=== PATIENT | male | born 1965 | race Hispanic/Latino ===

== ENCOUNTER 2025-02-24 22:01 | Inpatient (IN) | payer OTHER ==
[~2025-02-24] VITALS: Ht 170.2 cm; Wt 98.0 kg
[2025-02-24] MEDS ORDERED: SODIUM CHLORIDE 0.9% 1000ML 1,000 ML ONE ×2 (23:58→23:59)
[2025-02-25] VITALS (27 sets, daily range): BP systolic 78–106; BP diastolic 50–68; PULSE 55–100; RESP 14–23; TEMP 97.4–98.7; O2SAT 89–100
[2025-02-25] MEDS ORDERED: IOPAMIDOL 370 MG/ML 100 ML INFUS..BTL INJ ONE (00:01)
[2025-02-25] MEDS: SODIUM CHLORIDE 0.9% 1000ML 1,000 ML IV SCH ×5 (02:23→16:59)
[2025-02-25] MEDS ORDERED: ONDANSETRON HCL INJ 2MG/ML 2ML 2 MG/ML VIAL IV PRN (03:45)
[2025-02-25] MEDS: MUPIROCIN 2% OINT 22 GM TUBE TOP SCH (03:45)
[2025-02-25] MEDS ORDERED: SODIUM CHLORIDE 0.9% 250ML 250 ML ONE (04:24)
[2025-02-25] MEDS ORDERED: LISINOPRIL-HCT1 EACH (04:49)
[2025-02-25] MEDS ORDERED: ULTRAM 50MG50 MG (04:49)
[2025-02-25] MEDS ORDERED: MELOXICAM7.5 MG (04:49)
[2025-02-25] MEDS ORDERED: CYCLOBENZAPRINE5 MG (04:49)
[2025-02-25] MEDS ORDERED: ATORVASTATIN CA40 MG (04:49)
[2025-02-25] MEDS: SODIUM CHLORIDE 0.9% 250ML 250 ML IV ONE (05:06)
[2025-02-25 07:57] LABS: BASOPHILS # (AUTO) 0.1 (0.0-0.1); BASOPHILS % 0.2 % (0.0-1.0); HEMATOCRIT 34.8 % (38.2-49.6); HEMOGLOBIN 12.1 g/dL (14.0-18.0); LYMPHOCYTES # (AUTO) 1.4 (1.0-3.2); LYMPHOCYTES % 5.8 % (18.0-39.1); MEAN CORPUSCULAR HEMOGLOBIN 31.3 pg (28-32); MEAN CORPUSCULAR HGB CONC 34.8 g/dL (31-35); MEAN CORPUSCULAR VOLUME 90.2 fL (81-99); MONOCYTES # (AUTO) 1.1 (0.2-0.8); MONOCYTES % 4.5 % (4.4-11.3); NEUTROPHILS # (AUTO) 21.8 (2.1-6.9); NEUTROPHILS % 88.6 % (38.7-80.0); PLATELET COUNT 355 x10e3/uL (140-360); RED BLOOD COUNT 3.86 x10e6/uL (4.3-5.7); RED CELL DISTRIBUTION WIDTH 13.1 % (11.7-14.4); WHITE BLOOD COUNT 24.59 x10e3/uL (4.8-10.8)
[2025-02-25 08:13] LABS: ALBUMIN/GLOBULIN RATIO 0.9 (0.8-2.0); ANION GAP 13.5 mmol/L (8-16); BILIRUBIN,TOTAL 0.7 mg/dL (0.2-1.2); CREATININE, SERUM 1.38 mg/dL (0.72-1.25); POTASSIUM 3.5 mmol/L (3.5-5.1); TOTAL PROTEIN 6.2 g/dL (6.5-8.1)
[2025-02-25 08:48] LABS: TROPONIN I 0.014 ng/mL (0-0.300)
[2025-02-25] MEDS ORDERED: SUCCINYLCHOLINE CHLORIDE 20 MG/ML 10ML VIAL ONE (08:48)
[2025-02-25] MEDS ORDERED: ROCURONIUM BROMIDE 0 ML IV ONE (08:48)
[2025-02-25] MEDS ORDERED: FENTANYL CITRATE/PF 100MCG/2 ML INJ ONE (08:48)
[2025-02-25] MEDS ORDERED: PROPOFOL IV EMULSION 10 MG/ML 20 ML VIAL ONE (08:48)
[2025-02-25] MEDS ORDERED: LIDOCAINE HCL 2% LOCAL INJ 5 ML SDV VIAL INJ ONE (08:48)
[2025-02-25] MEDS ORDERED: HYDRALAZINE HCL 20 MG/ML VIAL IV PRN (09:15)
[2025-02-25] MEDS ORDERED: ACETAMINOPHEN 325 MG TAB PO PRN (09:15)
[2025-02-25] MEDS ORDERED: Morphine 2mg Syringe 2 MG/ML SYR IV PRN (09:15)
[2025-02-25] MEDS ORDERED: POLYETHYLENE GLYCOL 3350 17 GM PACK PO PRN (09:15)
[2025-02-25] MEDS ORDERED: HYDROMORPHONE 2MG/ML ONE (09:27)
[2025-02-25] MEDS ORDERED: KETOROLAC TROMETHAMINE 30 MG/ML VIAL ONE (09:28)
[2025-02-25] MEDS ORDERED: METOCLOPRAMIDE HCL 10 MG/2ML VIAL ONE (09:28)
[2025-02-25] MEDS ORDERED: DEXAMETHASONE SOD PHOS INJ 4 MG/ML SDV ONE (09:28)
[2025-02-25] MEDS ORDERED: PHENYLEPHRINE HCL 1% 10 MG/ML VIAL ONE (09:28)
[2025-02-25] MEDS ORDERED: ONDANSETRON HCL INJ 2MG/ML 2ML 2 MG/ML VIAL ONE (09:28)
[2025-02-25] MEDS ORDERED: ROCURONIUM BROMIDE 1 ML IV ONE (09:36)
[2025-02-25] MEDS ORDERED: SUGAMMADEX SODIUM 200 MG/2 ML VIAL IV ONE ×2 (10:06→10:21)
[2025-02-25] MEDS ORDERED: HYDROMORPHONE 1MG/1ML INJ IV PRN (10:30)
[2025-02-25] MEDS ORDERED: KETOROLAC TROMETHAMINE 30 MG/ML VIAL IV PRN (10:30)
[2025-02-25 11:03] LABS: LYMPHOCYTES % (MANUAL) 16 % (19-48); MONOCYTES % (MANUAL) 6 % (3.4-9.0); NEUTROPHILS % (MANUAL) 78 % (40-74); PLATELET ESTIMATE ADEQUATE; PLATELET MORPHOLOGY COMMENT NORMAL
[2025-02-25] MEDS ORDERED: DOCUSATE SODIUM 100 MG CAP PO SCH (17:00)
[2025-02-25] MEDS: HYDROCODONE/APAP 7.5MG-325MG 1 EA TAB PO PRN (20:52)
[2025-02-26] VITALS (16 sets, daily range): BP systolic 90–104; BP diastolic 55–66; PULSE 56–81; RESP 15–19; TEMP 97.5–98.1; O2SAT 94–100
[2025-02-26 06:33] LABS: BASOPHILS % 0.2 % (0.0-1.0); EOSINOPHILS # (AUTO) 0.1 (0.0-0.4); EOSINOPHILS % 0.5 % (0.0-6.0); HEMATOCRIT 30.4 % (38.2-49.6); LYMPHOCYTES # (AUTO) 1.9 (1.0-3.2); LYMPHOCYTES % 12.5 % (18.0-39.1); MEAN CORPUSCULAR HEMOGLOBIN 30.3 pg (28-32); MEAN CORPUSCULAR HGB CONC 32.9 g/dL (31-35); MEAN CORPUSCULAR VOLUME 92.1 fL (81-99); MONOCYTES % 6.7 % (4.4-11.3); NEUTROPHILS # (AUTO) 12.1 (2.1-6.9); NEUTROPHILS % 79.3 % (38.7-80.0); PLATELET COUNT 318 x10e3/uL (140-360); RED CELL DISTRIBUTION WIDTH 13.5 % (11.7-14.4)
[2025-02-26 07:04] LABS: ALBUMIN 2.7 g/dL (3.5-5.0); ANION GAP 11.7 mmol/L (8-16); BILIRUBIN,TOTAL 0.3 mg/dL (0.2-1.2); CALCIUM 7.7 mg/dL (8.4-10.2); CHOL/HDL RATIO 2.9 (3.9-4.7); MAGNESIUM 1.6 MG/DL (1.3-2.1); PHOSPHORUS 2.5 MG/DL (2.3-4.7); POTASSIUM 3.7 mmol/L (3.5-5.1); TOTAL PROTEIN 5.5 g/dL (6.5-8.1)
[2025-02-26 07:19] LABS: CREATININE, SERUM 1.04 mg/dL (0.72-1.25)
[2025-02-26 07:59] LABS: FREE T4 (FREE THYROXINE) 1.32 ng/dL (0.8-1.8); THYROID STIMULATING HORMONE 0.208 uIU/mL (0.350-4.940)
[2025-02-27] VITALS (7 sets, daily range): BP systolic 105–130; BP diastolic 64–83; PULSE 72–81; RESP 16–20; TEMP 98.3–98.9; O2SAT 95–98
[2025-02-27] MEDS: MAGNESIUM SULFATE 2GM/50ML 50 ML IV ONE (03:55)
[2025-02-27 05:13] LABS: BASOPHILS # (AUTO) 0.1 (0.0-0.1); BASOPHILS % 0.4 % (0.0-1.0); EOSINOPHILS # (AUTO) 0.1 (0.0-0.4); EOSINOPHILS % 1.2 % (0.0-6.0); HEMATOCRIT 30.8 % (38.2-49.6); HEMOGLOBIN 10.2 g/dL (14.0-18.0); LYMPHOCYTES # (AUTO) 1.4 (1.0-3.2); LYMPHOCYTES % 11.7 % (18.0-39.1); MEAN CORPUSCULAR HEMOGLOBIN 30.4 pg (28-32); MEAN CORPUSCULAR HGB CONC 33.1 g/dL (31-35); MEAN CORPUSCULAR VOLUME 91.9 fL (81-99); MONOCYTES # (AUTO) 1.2 (0.2-0.8); MONOCYTES % 9.7 % (4.4-11.3); NEUTROPHILS # (AUTO) 9.1 (2.1-6.9); NEUTROPHILS % 76.3 % (38.7-80.0); PLATELET COUNT 305 x10e3/uL (140-360); RED BLOOD COUNT 3.35 x10e6/uL (4.3-5.7); RED CELL DISTRIBUTION WIDTH 13.6 % (11.7-14.4); WHITE BLOOD COUNT 11.97 x10e3/uL (4.8-10.8)
[2025-02-27 05:39] LABS: ANION GAP 10.5 mmol/L (8-16); CALCIUM 8.3 mg/dL (8.4-10.2); CREATININE, SERUM 0.86 mg/dL (0.72-1.25); POTASSIUM 3.5 mmol/L (3.5-5.1)
[2025-02-27] MEDS ORDERED: ONDANSETRON ODT4 MG PO (16:25)
[2025-02-27] MEDS ORDERED: ACETAMINOPHEN325 M1 PO (16:25)
[2025-03-05] MEDS ORDERED: AMOX TR-K CLV1 EAC2 PO (15:27)
== END 2025-02-27 17:50 | disposition home or self-care (01) | DRG 853 ==
LOC: FSED 22:28 → ERHOLD 02-25 03:55 → ICU 02-25 04:36 → MED/SURG 02-26 23:17
PROVIDERS: ADMIT Internal Medicine; ATTEND Internal Medicine
PROC: 3E0333Z Introduction of Anti-inflammatory into Peripheral Vein, Percutaneous Approach (ICD-10-PCS; 2025-02-25)
PROC: 0DTJ4ZZ Resection of Appendix, Percutaneous Endoscopic Approach (ICD-10-PCS; principal; 2025-02-25 09:17)
DX: A41.59 Other Gram-negative sepsis (principal); R65.21 Severe sepsis with septic shock; K35.891 Other acute appendicitis without perforation, with gangrene; K42.0 Umbilical hernia with obstruction, without gangrene; N17.9 Acute kidney failure, unspecified; M54.32 Sciatica, left side; I10 Essential (primary) hypertension; E78.00 Pure hypercholesterolemia, unspecified; M54.16 Radiculopathy, lumbar region; B96.6 Bacteroides fragilis [B. fragilis] as the cause of diseases classified elsewhere; Z11.52 Encounter for screening for COVID-19; Z82.49 Family history of ischemic heart disease and other diseases of the circulatory system; F17.210 Nicotine dependence, cigarettes, uncomplicated
CPT/HCPCS: 0223U; 36415; 71250; 74176; 80048; 80053; 80061; 80076; 82550; 83036; 83605; 83735; 83880; 84100; 84439; 84443; 84484; 85025; 85379; 87040; 87071; 87205; 87400; 88304; 88342; 93005; 93306; 93971; 94799; 99284; C1766; J0330; J1100; J1171; J1885; J2003; J2371; J2405; J2470; J2543; J2765; J3475; J7030; J7050; Q9967